=== PATIENT | male | born 1955 | race African-American/Black ===

== ENCOUNTER 2020-12-07 17:51 | Emergency (ER) | payer MEDICARE, SELFPAY ==
[2020-12-07] VITALS (13 sets, daily range): BP systolic 159–194; BP diastolic 91–115; PULSE 79–95; RESP 16–23; TEMP 36.3–36.7; O2SAT 94–100
--- NOTE | ~2020-12-07 | CT_ITS ---
EXAMINATION: CT brain wo con INDICATION: Confusion and altered mental status COMPARISON: None TECHNIQUE: Standard unenhanced head CT. The dose-length product (DLP) was 681.00 mGy-cm. The mA was a djusted according to patient size. Iterative reconstruction technique was employed. FINDINGS: There is no acute intraparenchymal hemorrhage. No evidence of mass lesion. No evidence of a cute infarction. 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 Old infarcts are also seen caudally in the frontal lobes near the midline. There is mild periventricular and subcortical hypodensity probab ly related to small vessel ischemic disease. There is moderate prominence of the sulci and ventricles related to cerebral atrophy. Intracranial calcified cerebral atherosclerosis is noted. There are no extra-axial collections. There is no mass effect or midline shift. The orbits and soft tissues are un remarkable. There is complete opacification of the frontal sinuses and anterior ethmoidal air cells. There is also opacification of the visualized left maxillary sinus. IMPRESSION: 1. Areas of prior infarction without acute intracranial abnormality. 2. Age related findings. 3. Sinus disease. Reviewed, dictated and finalized at location A. [facility]
--- NOTE | ~2020-12-07 | CT_ITS ---
EXAMINATION: CTA brain carotid DATE: 12/07/2020 19:14 INDICATION: Altered mental status, a Mack TECHNIQUE: Computed tomographic angiography (CTA) of the head was performed without and with 100 mL O mnipaque-350 intravenous contrast. CTA of the neck was performed with intravenous contrast. The dose- length product was 1095.14 mGy-cm. Maximum intensity projection and volume rendered 3D-reconstruction s were created by the technologist on a separate workstation. Automated exposure control and iterativ e reconstruction technique were employed. COMPARISON: CT from earlier today FINDINGS: HEAD CTA: There is no acute intraparenchymal hemorrhage. No evidence of mass lesion. No evidence of a cute infarction. Again noted are areas of prior infarction in the caudal aspect of the frontal lobes and in the right caudate nucleus. There is mild periventricular and subcortical hypodensity probably related to small vessel ischemic disease. There is mild prominence of the sulci and ventricles relate d to cerebral atrophy. Intracranial calcified cerebral atherosclerosis is noted. There are no extra-a xial collections. There is no mass effect or midline shift. The orbits and soft tissues are unremarka ble. There is complete opacification of the frontal sinuses, left maxillary sinus, and anterior ethmo idal air cells. There is near complete opacification of the right maxillary sinus. There is no significant stenosis of the basilar artery or posterior cerebral arteries. There is no si gnificant stenosis of the intracranial internal carotid arteries or the anterior or middle cerebral a rteries. The anterior communicating artery and right posterior communicating arteries are normal. The left posterior communicating arteries hypoplastic. There is no aneurysm. NECK CTA: The thyroid gland is unremarkable. The submandibular and parotid glands are symmetric. Ther e is no lymphadenopathy. There are no masses identified. The airway is unremarkable. There is moderat e cervical spondylosis. Dependent atelectasis is noted in the visualized upper lobes. The superior me diastinum is unremarkable. There is 0% stenosis of the proximal right internal carotid artery relative to normal distal artery l umen diameter (NASCET criteria). There is 0% stenosis of the proximal left internal carotid artery re lative to normal distal artery lumen diameter. IMPRESSION: 1. Areas of prior infarction without acute intracranial abnormality. Normal head CTA. 2. 0% stenosis of the proximal right internal carotid artery relative to normal distal artery lumen d iameter (NASCET criteria). 3. 0% stenosis of the proximal left internal carotid artery relative to normal distal artery lumen di ameter. 4. Sinus disease. Reviewed, dictated and finalized at location A. [employer] REPA[employer]ER IMPRESSION: 1. Areas of prior infarction without acute intracranial abnormality. Normal hea d CTA. 2. 0% stenosis of the proximal right internal carotid artery relative to normal distal artery lumen diameter (NASCET criteria). 3. 0% stenosis of the proximal left internal carotid artery relative to normal distal artery lumen diameter. 4. Sinus disease.
--- NOTE | 2020-12-07 18:00 | ECG_ITS ---
Measurements Intervals [place] Rate: 86 P: 69 [place]: 147 QRS: 34 QRSD: 90 T: 68 QT: 298 QTc: 357 Interpretive Statements SINUS RHYTHM POSSIBLE LEFT ATRIAL ENLARGEMENT DELAYED PRECORDIAL R/S TRANSITION BORDERLINE ECG Electronically Signed On 12-13-2020 7:01:34 DERMATOLOGY SPECIALIST by Thomas Esteban D.O.
[2020-12-07 18:14] LABS: Glucose Point of Care 100 (65-105)
[2020-12-07 18:19] LABS: Basophils Percent Auto 0.5 % (0.2-1.2); Eosinophils Absolute Auto 0.1 K/mm3 (0-0.3); Eosinophils Percent Auto 1.9 % (0-4.4); Hematocrit 41.3 % (42.0-52.0); Immature Granulocyte Absolute 0.02 K/mm3 (0.00-0.031); Immature Granulocyte Percent A 0.4 % (0-0.5); Lymphocytes Percent Auto 28.3 % (18.3-44.2); Mean Corpuscular HGB Conc 31.5 g/dl (32-36); Mean Corpuscular Hemoglobin 23.6 pg (26-34); Mean Corpuscular Volume 75.1 fl (80-100); Mean Platelet Volume 8.9 fl (7.4-10.4); Monocytes Absolute Auto 0.6 K/mm3 (0.1-0.6); Monocytes Percent Auto 10.4 % (2.6-8.5); Neutrophils Absolute Auto 3.3 K/mm3 (1.3-6.7); Neutrophils Percent Auto 58.5 % (45.5-73.1); Platelet Count Result 262 k/mm3 (150-375); Red Cell Distribution Width 15.4 % (11.5-14.5); White Blood Count 5.7 K/mm3 (4.5-10.0)
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
[2020-12-07 18:22] LABS: Add Urine Microscopic? YES; Appearance Urine Clear (Clear); Bilirubin Urine Negative (Negative); Blood Urine Negative (Negative); Color Urine Yellow (Yellow); Glucose Urine UA Negative (Negative); Ketones Urine Negative (Negative); Leukocyte Esterase Ur Negative LEU/UL (Negative); Mucus Urine Rare /lpf; Nitrate Urine Negative (Negative); Protein Urine 1+ mg/dL (Negative); RBC Urine 0-2 /hpf (0-2); Specific Grav Ur 1.013 (1.001-1.035); Urobilinogen Urine Negative mg/dL (<2.0); WBC Urine 0-3 /hpf
[2020-12-07 18:31] LABS: Alanine Aminotransferase 24 U/L (4-50); Albumin Level 4.2 g/dL (3.5-5.1); Alkaline Phosphatase 101 U/L (38-126); Anion Gap 4 mmol/L (8-16); Aspartate Amino Transferase 31 U/L (17-59); Bilirubin,Total 0.4 mg/dL (0.2-1.3); Blood Urea Nitrogen 16 mg/dL (9-20); Calcium 8.9 mg/dL (8.4-10.2); Carbon Dioxide 33 mmol/L (22-30); Chloride 103 mmol/L (98-107); Estimated CRCL calculation 67 ml/min; Estimated Glomerular Filt Rate > 60; Glucose 106 mg/dL (75-110); Potassium 4.2 mmol/L (3.4-5.0); Sodium 140 mmol/L (137-145)
--- NOTE | 2020-12-07 19:16 | PC.NURSE ---
Report received from SONIA Ricks. Assumed care of patient at this time.
[2020-12-07 20:13] LABS: Ethanol < 10 mg/dL (<10)
[2020-12-07 20:40] LABS: Amphetamine Screen Urine Negative (Negative); Barbiturate Screen Urine Negative (Negative); Benzodiazepines Screen Urine Negative (Negative); Cannabinoid Screen Urine Negative (Negative); Cocaine Screen Urine Negative (Negative); Methadone Screen Urine Negative (Negative); Opiate Screen Urine Negative (Negative); Phencyclidine Screen Urine Negative (Negative)
--- NOTE | 2020-12-07 21:25 | ECG_ITS ---
Measurements Intervals [place] Rate: 86 P: 76 [place]: 156 QRS: 18 QRSD: 92 T: 67 QT: 372 QTc: 446 Interpretive Statements SINUS RHYTHM WITH SINUS ARRHYTHMIA POSSIBLE LEFT ATRIAL ENLARGEMENT BORDERLINE R WAVE PROGRESSION, ANTERIOR LEADS BASELINE ARTIFACT- II, III, AVF, V4 BORDERLINE ECG Electronically Signed On 12-08-2020 6:58:37 [employer] M[employer]ER by Thomas Esteban D.O.
== END 2020-12-07 22:00 | disposition short-term general hospital (02) ==
PROVIDERS: Emergency Provider Emergency Medicine; PCP Family Medicine
DX: I63.9 Cerebral infarction, unspecified (principal); R29.710 NIHSS score 10; J32.9 Chronic sinusitis, unspecified; R94.31 Abnormal electrocardiogram [ECG] [EKG]; R47.01 Aphasia
CPT/HCPCS: 36415; 51701; 70450; 70496; 70498; 80053; 80307; 81001; 82948; 85025; 93005; 99285; Q9967